=== PATIENT | male | born 1980 | race Caucasian/White ===

== ENCOUNTER 2018-12-13 14:46 | Emergency (ER) | payer OTHER ==
[2018-12-13 15:18] VITALS: BP 112/73
--- NOTE | 2018-12-13 15:48 | UC ---
Lower Extremity/Ankle HPI - HPI Summary HPI Summary: Works as an electrician machine shop, felt a strain in his leg about 2 hours ago while trying to keep a 200 pound electrical board from falling. Able to weight bear. For the past month, has had sharp shotting pain in the left anterior knee without swelling or instability, and this has not limited his activity. - History of Current Complaint Chief Complaint: UCLowerExtremity Stated Complaint: TWISTED RT LEG Time Seen by Provider: 12/13/18 15:38 Hx Obtained From: Patient Onset/Duration: Sudden Onset, Lasting Hours - 2 Severity Initially: Moderate Severity Currently: Moderate Pain Intensity: 5 Aggravating Factor(s): Standing, Ambulation Alleviating Factor(s): Rest Related History: Occupational Injury - Risk Factors Gout Risk Factors: Negative DVT Risk Factors: Negative Septic Arthritis Risk Factor: Negative - Allergies/Home Medications Allergies/Adverse Reactions: Allergies Allergy/AdvReac Type Severity Reaction Status Date / Time No Known Allergies Allergy Verified 12/13/18 15:18 Home Medications: Home Medications Ibuprofen TAB* [Advil TAB*] 400 mg PO ONCE PRN 12/13/18 [History Confirmed 12/13] Losartan TAB* [Cozaar TAB*] 12/13/18 [History] PMH/Surg Hx/FS Hx/Imm Hx Cardiovascular History: Hypertension - Surgical History Surgical History: None - Family History Known Family History: Positive: Non-Contributory - Social History Occupation: Employed Full-time Lives: With Family Alcohol Use: Occasionally Substance Use Type: None Smoking Status (MU): Never Smoked Tobacco Have You Smoked in the Last Year: No Review of Systems All Other Systems Reviewed And Are Negative: Yes Musculoskeletal: Positive: Myalgia Is Patient Immunocompromised?: No Physical Exam Triage Information Reviewed: Yes Appearance: Well-Appearing, Pain Distress - mild Vital Signs: Initial Vital Signs Temp 97.3 F 12/13/18 15:14 Pulse 62 12/13/18 15:14 Resp 16 12/13/18 15:14 BP 112/73 12/13/18 15:14 Pulse Ox 97 12/13/18 15:14 Eye Exam: Normal ENT: Positive: Pharynx normal Neck exam: Normal Respiratory: Positive: Lungs clear, Normal breath sounds Cardiovascular: Positive: RRR, No Murmur Abdomen Description: Positive: Nontender, Soft Musculoskeletal Exam: Other - Full rom right knee, neg Lachmann's, negative MacMurray's Musculoskeletal: Positive: ROM Intact - both right hip and right knee. Tenderness in the mid lower body of the right hamstring--no swelling or ecchymosis., No Edema Neurological: Positive: Alert, Muscle Tone Normal Lower Extremity Course/Dx - Course Course Of Treatment: rest, ice, heat and analgesics. - Differential Dx/Diagnosis Differential Diagnosis/HQI/PQRI: Sprain, Strain Provider Diagnosis: Right hamstring muscle strain Discharge - Sign-Out/Discharge Documenting (check all that apply): Patient Departure All imaging exams completed and their final reports reviewed: No Studies - Discharge Plan Condition: Stable Disposition: HOME Patient Education Materials: Hamstring Injury (ED) Referrals: No Primary Care Phys,NOPCP [Primary Care Provider] - Additional Instructions: Use acetaminophen 1000 mg three times daily and/or ibuprofen 600mg three times daily for relief of pain. Alternate ice and heat to the body of the strained hamstring. Ensure that you stretch gently. Anticipate that it might take several days to see bruising in the back of the thigh. This is to be expected. - Billing Disposition and Condition Condition: STABLE Disposition: Home
== END 2018-12-13 16:30 | disposition home or self-care (01) ==
LOC: UCEAST 14:46
DX: S86.111A Strain of other muscle(s) and tendon(s) of posterior muscle group at lower leg level, right leg, initial encounter (principal); X50.0XXA Overexertion from strenuous movement or load, initial encounter; Y93.9 Activity, unspecified; Y92.89 Other specified places as the place of occurrence of the external cause; Y99.0 Civilian activity done for income or pay; I10 Essential (primary) hypertension
CPT/HCPCS: 99201; G0463